=== PATIENT | male | born 1960 | race Caucasian/White ===

== ENCOUNTER → 2020-02-13 | Outpatient (CLI) | payer BC ==
[2013-12-27 08:59] VITALS: BP 156/91
[~2020-02-13] MED LIST: AMLO5TAB10 PO; ASPI-482 PO; ATOR20TA58 PO; CHOL10002 PO; OMEG500C PO; PENT400T7 PO
--- NOTE | 2020-02-13 16:54 | RAD ---
LOWER EXTREMITY DUPLEX ARTERY ULTRASOUND Indication: Reason: RT LEG PAIN PVD, HISTORY OF STENT / Spl. Instructions: / History: Comparison: None. Procedure: Arterial 2D and duplex images are obtained of the right lower extremity arteries. Findings: Dampened, monophasic waveforms are present in the common femoral artery, superficial femoral artery, popliteal artery, anterior tibial artery, posterior tibial artery and dorsalis pedis artery. Similar findings are present in the right peroneal artery. Patient's right common femoral artery stent is patent. There are no elevated velocities in any of the interrogated arteries to suggest a high-grade focal stenosis. IMPRESSION: 1. Dampened monophasic waveforms throughout the arteries of the right lower extremity from the stented right common femoral artery down through the calf arteries suggests the presence of upstream inflow disease. Consider CT angiography of the abdomen and pelvis (with possible runoff into the lower extremity arteries) in further evaluation. 2. No evidence of high-grade stenosis in the interrogated vessels of the right lower extremity. The patient's right common femoral artery stent is patent. Electronically signed by: Lance Kan MD (02/13/2020 4:51 PM) [id number]
== END | disposition home or self-care (01) ==
LOC: US 10:48
PROVIDERS: ATTEND Family Medicine
DX: I73.89 Other specified peripheral vascular diseases (principal); M79.604 Pain in right leg; Z95.5 Presence of coronary angioplasty implant and graft
CPT/HCPCS: 93926

== ENCOUNTER → 2020-02-27 | Outpatient (CLI) | payer BC ==
[2013-12-27 08:59] VITALS: BP 156/91
[~2020-02-27] MED LIST changes: +CONTRAST GIVEN. MC PRN; +IOHEXOL 350 MG/ML 100 ML VIAL. IV ONE
--- NOTE | 2020-02-27 16:34 | RAD ---
CTA of the abdomen and pelvis with bilateral lower extremity runoffs. No comparison. Indication is performed after disease, right buttock pain. TECHNIQUE: Contiguous axial CT images are obtained through the abdomen and pelvis as well as the lower extremities to the level of the feet following administration of IV contrast in an arterial phase. Sagittal and coronal MIPS are evaluated as are 3-D volume rendered images of the vasculature. Nonvascular findings: There are a few small cysts at the lung bases. No gross morphologic abnormalities of the liver or spleen. Gallbladder is normal. Pancreas is normal. There is a cyst benign adrenal adenoma on the left. There is a mass of the right adrenal gland which is equivocal, demonstrating Hounsfield units of 23. This mass measures 2.2 cm. Further characterization with MRI is encouraged. Bilateral kidneys are normal. No hydronephrosis. Mild amount of perinephric stranding. No free or loculated fluid collections. Prostate is markedly enlarged, with lobular extension into the base of the urinary bladder. There is circumferential thickening of the urinary bladder wall, however the bladder is incompletely distended. Findings may be on this basis. Evaluation of large and small bowel is limited by lack of oral contrast, there were no gross abnormalities are identified. No suspicious mesenteric or retroperitoneal adenopathy is evident. No significant osseous abnormalities. Vascular findings: There is mild to moderate soft atherosclerotic plaque in multiple distributions. The celiac artery is widely patent. Superior mesenteric artery is patent at its origin, however there is approximately 30 percent narrowing within the proximal superior mesenteric artery just prior to the origin of the first renal branch. There is a single left renal artery which is patent. There are paired right renal arteries, both of which are patent. The inferior mesenteric artery is patent. There are kissing iliac artery stents which extend into the distal aorta both of which are patent. A mild soft atherosclerotic plaque within the terminal aorta just above both iliac stents. The right common iliac artery stent is notable for a focal area of moderate to severe soft atherosclerotic in-stent stenosis near its distal margin. The left common iliac artery stent appears constrained at its distal margin, resulting in greater than 50 percent stenosis here as well. Both internal iliac arteries are patent but demonstrate multifocal atherosclerosis. Both external iliac and common femoral arteries are likewise patent with mild multifocal atherosclerosis and no hemodynamically significant stenosis identified. On the right, the superficial femoral, popliteal, tibial peroneal, peroneal, and posterior tibial arteries are all patent with a few mild atherosclerotic plaques and no hemodynamically significant stenosis. The right anterior tibial artery is patent at its origin and tapers to occlusion distally. On the left, findings are similar, though the left anterior tibial artery tapers but does not completely occlude, and provides in-line flow to a diminutive dorsalis pedis artery. IMPRESSION: 1. Bilateral common iliac artery stents. The stent on the right is notable for moderate to severe in-stent stenosis distally. The stent on the left appears constrained distally, resulting in at least moderate focal stenosis at this location as well. 2. Multifocal soft and calcified atherosclerosis throughout virtually all distributions. No other clinically significant stenoses are seen. 3. All vessels the right lower extremity are widely patent the for the right anterior tibial artery which tapers to occlusion just above the ankle. All vessels on the left are patent as well, with the anterior tibial artery tapering but not occluding, and providing in-line flow to diminutive left dorsalis pedis artery. 4. Equivocal 2.2 cm right adrenal mass. There is also a definitively benign left adrenal adenoma. Further characterization of the right adrenal mass with MRI is encouraged. 5. Markedly enlarged prostate, with lobular protrusion into the base the urinary bladder. Clinical laboratory correlation is recommended. 6. Segmental thickening of the urinary bladder, likely on the basis of incomplete distention. Para PQRS Compliance Statement: One or more of the following individualized dose reduction techniques were utilized for this examination: 1. Automated exposure control 2. Adjustment of the mA and/or kV according to patient size 3. Use of iterative reconstruction technique Electronically signed by: Juanito Muhammad MD (02/27/2020 4:31 PM) [id number]
== END | disposition home or self-care (01) ==
LOC: CT 09:46
PROVIDERS: ATTEND Family Medicine
DX: N40.0 Benign prostatic hyperplasia without lower urinary tract symptoms (principal); N32.89 Other specified disorders of bladder; D35.02 Benign neoplasm of left adrenal gland; I73.9 Peripheral vascular disease, unspecified
CPT/HCPCS: 75635; Q9967